=== PATIENT | male | born 1955 | race Hispanic/Latino ===

== ENCOUNTER 2017-09-17 09:37 | Inpatient (IN) | payer OTHER ==
[2017-09-17 09:48] LABS: BASOPHILS % (AUTO) 0.7 % (0.0-5.0); EOSINOPHILS % (AUTO) 0.7 % (0.0-8.0); HEMATOCRIT 41.7 % (42-54); LYMPHOCYTES % (AUTO) 24.3 % (21.0-51.0); MEAN CORPUSCULAR HEMOGLOBIN 30.5 pg (27.0-33.0); MEAN CORPUSCULAR HGB CONC 34.5 g/dL (32.0-36.0); MEAN CORPUSCULAR VOLUME 88.3 fL (79-99); MONOCYTES % (AUTO) 6.5 % (3.0-13.0); NEUTROPHILS % (AUTO) 67.8 % (40.0-77.0); PLATELET COUNT (AUTO) 221 K/uL (130-400); RED BLOOD CELL COUNT(AUTO) 4.72 MIL/uL (4.50-6.20); RED CELL DISTRIBUTION WIDTH 13.6 % (11.0-15.5); WHITE BLOOD COUNT (AUTO) 9.8 K/uL (4.8-10.8)
[2017-09-17] MEDS ORDERED: ASPIRIN 325MG EC TAB 325 MG TABLET.DR PO ONE (09:48)
[2017-09-17 09:56] LABS: CREATININE 0.9 mg/dL (0.5-1.5); POTASSIUM 4.1 mmol/L (3.5-5.1)
[2017-09-17 10:01] LABS: BILIRUBIN,TOTAL 0.5 mg/dL (0.2-1.0); TOTAL PROTEIN, SERUM 7.8 g/dL (6.0-8.3)
[2017-09-17 10:03] LABS: INR 0.97 (0.85-1.15); PARTIAL THROMBOPLASTIN TIME 26.4 SEC (26.3-35.5); PROTHROMBIN TIME 10.2 SEC (9.6-11.6)
[2017-09-17 10:10] LABS: B-TYPE NATRIURETIC PEPTIDE 22 pg/mL (0-100)
[2017-09-17] MEDS ORDERED: NITROGLYCERIN 1GM/1 INCH PACKET TD ONE (12:48)
[2017-09-17 13:25] VITALS: BP 153/80
[2017-09-17] MEDS: NITROGLYCERIN 1GM/1 INCH PACKET TD SCH ×2 (13:59→20:08)
[2017-09-17 16:00] VITALS: BP 123/69
[2017-09-17 16:53] LABS: CREATINE KINASE, TOTAL 142 U/L (21-232); MYOGLOBIN 61 ng/mL (10-92); TROPONIN I < 0.04 ng/mL (0.00-0.06)
[2017-09-17 19:43] VITALS: BP 127/81
[2017-09-17] MEDS: METOPROLOL TARTRATE 25 MG TAB PO SCH (20:08)
[2017-09-17] MEDS: ATORVASTATIN CALCIUM 10 MG TABLET PO SCH (20:08)
[2017-09-17] MEDS ORDERED: METOPROLOL TARTRATE 25 MG TAB PO SCH (21:00)
[2017-09-17 22:35] LABS: CREATINE KINASE MB 1.9 ng/mL (0.5-3.6); CREATINE KINASE, TOTAL 131 U/L (21-232); MYOGLOBIN 46 ng/mL (10-92); TROPONIN I < 0.04 ng/mL (0.00-0.06)
[2017-09-17 23:33] VITALS: BP 123/77
[2017-09-18] MEDS: NITROGLYCERIN 1GM/1 INCH PACKET TD SCH ×3 (01:50→20:41)
[2017-09-18 04:00] VITALS: BP 105/65
[2017-09-18 06:44] LABS: CHOLESTEROL 148 mg/dL (<200); HDL CHOLESTEROL 36 mg/dL (29-71); LDL DIRECT 95 mg/dL (0-99); TRIGLYCERIDES 145 mg/dL (30-200)
[2017-09-18 07:00] VITALS: BP 129/77
[2017-09-18] MEDS ORDERED: REGADENOSON 0.4 MG/5 ML PF SYG IVP SCH (08:15)
[2017-09-18] MEDS ORDERED: ASPIRIN 81 MG EC TAB PO SCH (09:00)
[2017-09-18] MEDS ORDERED: ASPIRIN 325MG EC TAB 325 MG TABLET.DR PO SCH (09:00)
[2017-09-18 11:00] VITALS: BP 140/72
[2017-09-18] MEDS: PANTOPRAZOLE SODIUM 40 MG TABLET.DR PO SCH (13:02)
[2017-09-18] MEDS: ASPIRIN 81MG TAB.CHEW PO SCH (13:02)
[2017-09-18] MEDS: METOPROLOL TARTRATE 25 MG TAB PO SCH ×2 (13:03→20:38)
[2017-09-18] MEDS: LISINOPRIL 10 MG TABLET PO SCH (13:03)
[2017-09-18] MEDS ORDERED: ATOR10TA69 PO (15:25)
[2017-09-18 16:00] VITALS: BP 111/64
[2017-09-18 19:56] VITALS: BP 119/67
[2017-09-18] MEDS: ATORVASTATIN CALCIUM 10 MG TABLET PO SCH (20:37)
[2017-09-18 23:46] VITALS: BP 114/71
[2017-09-19] MEDS: NITROGLYCERIN 1GM/1 INCH PACKET TD SCH ×4 (02:24→20:32)
[2017-09-19 04:00] VITALS: BP 118/60
[2017-09-19] MEDS: PANTOPRAZOLE SODIUM 40 MG TABLET.DR PO SCH (06:54)
[2017-09-19 07:30] VITALS: BP 118/74
[2017-09-19] MEDS: ASPIRIN 81MG TAB.CHEW PO SCH (07:43)
[2017-09-19] MEDS: LISINOPRIL 10 MG TABLET PO SCH (07:45)
[2017-09-19] MEDS: METOPROLOL TARTRATE 25 MG TAB PO SCH ×2 (07:45→20:33)
[2017-09-19 11:08] VITALS: BP 119/67
[2017-09-19] MEDS ORDERED: ISOSORBIDE MONO 60 MG TAB.SR PO ONE (11:10)
[2017-09-19] MEDS ORDERED: ISOSORBIDE MONO 60 MG TAB.SR PO SCH (11:15)
[2017-09-19 16:24] VITALS: BP 114/64
[2017-09-19 19:49] VITALS: BP 104/56
[2017-09-19] MEDS: ATORVASTATIN CALCIUM 10 MG TABLET PO SCH (20:33)
[2017-09-20] VITALS (14 sets, daily range): BP systolic 95–131; BP diastolic 51–71
[2017-09-20] MEDS: NITROGLYCERIN 1GM/1 INCH PACKET TD SCH ×3 (02:23→19:59)
[2017-09-20 04:07] LABS: HEMATOCRIT 38.4 % (42-54); MEAN CORPUSCULAR HEMOGLOBIN 30.5 pg (27.0-33.0); MEAN CORPUSCULAR HGB CONC 34.2 g/dL (32.0-36.0); MEAN CORPUSCULAR VOLUME 89.3 fL (79-99); PLATELET COUNT (AUTO) 222 K/uL (130-400); RED CELL DISTRIBUTION WIDTH 13.9 % (11.0-15.5); WHITE BLOOD COUNT (AUTO) 9.7 K/uL (4.8-10.8)
[2017-09-20 04:25] LABS: INR 0.96 (0.85-1.15); PROTHROMBIN TIME 10.1 SEC (9.6-11.6)
[2017-09-20 04:48] LABS: CREATININE 1.2 mg/dL (0.5-1.5); POTASSIUM 3.9 mmol/L (3.5-5.1)
[2017-09-20] MEDS ORDERED: SODIUM CHLORIDE 0.9% 1000ML 1,000 ML IV SCH ×2 (06:30→13:21)
[2017-09-20] MEDS ORDERED: SODIUM CHLORIDE 0.9% 1000ML 1,000 ML IV ONE (06:32)
[2017-09-20] MEDS: PANTOPRAZOLE SODIUM 40 MG TABLET.DR PO SCH (07:30)
[2017-09-20] MEDS ORDERED: ISOSORBIDE MONO 60 MG TAB.SR PO SCH (09:00)
[2017-09-20] MEDS: ASPIRIN 81MG TAB.CHEW PO SCH (09:00)
[2017-09-20] MEDS: METOPROLOL TARTRATE 25 MG TAB PO SCH ×2 (12:32→21:00)
[2017-09-20] MEDS: LISINOPRIL 10 MG TABLET PO SCH (12:32)
[2017-09-20] MEDS ORDERED: LIDOCAINE HCL 2% 20ML ONE (12:42)
[2017-09-20] MEDS ORDERED: ISOVUE-370 50ML VIAL IV ONE (12:42)
[2017-09-20] MEDS ORDERED: IOPAMIDOL-370 100 ML VIAL IV ONE (12:42)
[2017-09-20] MEDS ORDERED: ACETAMINOPHEN-CODEINE 300/30MG TAB PO PRN ×2 (13:30)
[2017-09-20] MEDS: ATORVASTATIN CALCIUM 10 MG TABLET PO SCH (22:16)
[2017-09-21 00:04] VITALS: BP 95/54
[2017-09-21] MEDS: NITROGLYCERIN 1GM/1 INCH PACKET TD SCH ×2 (02:00→08:00)
[2017-09-21 03:37] VITALS: BP 100/55
[2017-09-21 03:51] LABS: HEMATOCRIT 37.4 % (42-54); MEAN CORPUSCULAR HEMOGLOBIN 31.6 pg (27.0-33.0); MEAN CORPUSCULAR HGB CONC 35.3 g/dL (32.0-36.0); MEAN CORPUSCULAR VOLUME 89.5 fL (79-99); PLATELET COUNT (AUTO) 208 K/uL (130-400); RED BLOOD CELL COUNT(AUTO) 4.18 MIL/uL (4.50-6.20); RED CELL DISTRIBUTION WIDTH 13.7 % (11.0-15.5); WHITE BLOOD COUNT (AUTO) 9.8 K/uL (4.8-10.8)
[2017-09-21 04:07] LABS: CREATININE 0.9 mg/dL (0.5-1.5); POTASSIUM 4.1 mmol/L (3.5-5.1)
[2017-09-21] MEDS: PANTOPRAZOLE SODIUM 40 MG TABLET.DR PO SCH (06:18)
[2017-09-21 07:00] VITALS: BP 115/70
[2017-09-21] MEDS ORDERED: ISOVUE-370 50ML VIAL IV ONE (07:18)
== END 2017-09-21 10:26 | disposition home or self-care (01) | DRG 191 ==
LOC: EDH 09:37 → OBSVTOIN 12:05 → EDHIP 12:05 → 2AH 13:00
PROVIDERS: ADMIT Family Medicine; ATTEND Family Medicine
PROC: 4A023N7 Measurement of Cardiac Sampling and Pressure, Left Heart, Percutaneous Approach (ICD-10-PCS; principal; 2017-09-20)
PROC: B2111ZZ Fluoroscopy of Multiple Coronary Arteries using Low Osmolar Contrast (ICD-10-PCS; 2017-09-20)
PROC: B2151ZZ Fluoroscopy of Left Heart using Low Osmolar Contrast (ICD-10-PCS; 2017-09-20)
DX: I20.0 Unstable angina (principal); E66.9 Obesity, unspecified; E78.5 Hyperlipidemia, unspecified; I10 Essential (primary) hypertension; M19.90 Unspecified osteoarthritis, unspecified site; Z68.37 Body mass index [BMI] 37.0-37.9, adult; Z79.82 Long term (current) use of aspirin; Z79.899 Other long term (current) drug therapy; Z87.891 Personal history of nicotine dependence; Z90.49 Acquired absence of other specified parts of digestive tract
CPT/HCPCS: 36415; 71045; 71270; 78452; 80048; 80053; 80061; 82550; 82553; 83874; 83880; 84484; 85025; 85027; 85610; 85730; 93005; 93017; 93306; 93458; 96374; A9500; C1894; J1644; J2785; J3490; J7030; Q9967

== ENCOUNTER → 2017-10-01 | Outpatient (CLI) | payer SELFPAY ==
[~2017-10-01] MED LIST: ATOR10TA69 PO
== END | disposition home or self-care (01) ==
LOC: EDUNIT# 09-23 13:30 → OIH 14:36
PROVIDERS: ATTEND Internal Medicine Cardiovascular Disease
DX: Z13.6 Encounter for screening for cardiovascular disorders (principal)
CPT/HCPCS: 75571

== ENCOUNTER → 2024-03-06 | Outpatient (CLI) | payer SELFPAY ==
--- NOTE | 2024-03-06 14:03 | HMCIMG ---
CT CORONARY CALCIFICATION SCORING: Anatomic images were reviewed. The calcium score is being generated and reported separately. This report is for the visualized anatomy only. Visualized portions of the lungs are clear. Hilar and mediastinal structures appear normal. Osseous structures are unremarkable. Impression: 1. Negative noncardiac anatomic findings. 2. The calcium score is 91.5 consistent with a mild degree of calcified plaque. This is 40th percentile for a patient this age. CT was performed with one or more following dose reduction techniques: automated exposure control, adjustment of the mA and kv according to patient's size, or use of a iterative reconstruction technique.
== END | disposition home or self-care (01) ==
LOC: RAH 13:06
PROVIDERS: ATTEND Family Medicine Sports Medicine
DX: Z13.6 Encounter for screening for cardiovascular disorders (principal)
CPT/HCPCS: 75571